=== PATIENT | male | born 1975 | race Caucasian/White ===

== ENCOUNTER 2022-06-17 19:13 | Inpatient (IN) ==
--- NOTE | 2022-06-17 19:25 | Emergency Department Note ---
ED Provider Note History of Present Illness Chief Complaint: Leg Injury/Pain Stated Complaint: R LEG PAIN Time Seen by Provider: 06/17/22 19:24 This is a 47-year-old male with a history of psoriasis, accompanied by his , who presents to the emergency department with ongoing right leg swelling over the past 2 months, calf pain, and now a red rash on the inside of his thigh that began over the weekend several days ago. He initially developed some calf pain and Swelling two months ago and states he was seen at a local urgent care and was diagnosed with a muscle spasm and prescribed with muscle relaxants. He states that the pain somewhat resolved after several weeks though has come and gone and the swelling in his calf has never really improved. 2 days ago after playing golf he developed a red burning rash on the inside of his thigh that has not improved. He thinks his leg is somewhat more swollen than it has been. He is able to walk on the leg though does cause some discomfort. He endorses some fatigue recently but denies denies any fevers or chills. Denies any inguinal discomfort, abdominal pain, chest pain, shortness of breath, pain with inspiration. Denies any cardiac history. Not immunocompromised. No history of DVT or PE. Denies any prolonged vehicle or plane trips before his initial discomfort began. Past Med/Surg History Medical History Psoriasis Surgical History No pertinent past surgical history Social History Smoking Status: Current every day smoker Tobacco Type: Cigarettes Preferred Language: [place] Feels Safe at Home: Yes Physical Exam Vital Signs Vital Signs - 24 hr 06/17/22 19:17 06/17/22 21:46 Temperature 97.9 F Temperature Source Temporal Artery Scan Pulse Rate 89 Pulse Rate [Finger] 67 Respiratory Rate 18 16 Respiratory Effort / Characteristics Non-Labored Spontaneous Respiratory Depth Normal Blood Pressure 115/82 Blood Pressure [Right Arm] 142/74 H Blood Pressure Mean 93 Blood Pressure Mean [Right Arm] 96 Blood Pressure Position Sitting Pulse Oximetry 99 96 Oxygen Delivery Method Room Air Room Air Sepsis Recent Fever Within 48 Hours No Sepsis New/Unexplained Change in Mental Status No Sepsis Action Taken by Nursing No Action Required CONSTITUTIONAL: Well developed, well nourished, in no acute distress. NECK: Full active range of motion. RESPIRATORY: Breathing unlabored and symmetric. Lungs clear to auscultation bilaterally. No wheeze, rales, or rhonchi. CARDIOVASCULAR: Regular rate and rhythm. No murmurs, rubs, or gallops. DP pulses 2+ bilaterally. ABDOMEN: Normal bowel sounds. Soft, nontender, no peritonitis. No masses. LYMPHATIC: No inguinal adenopathy MUSCULOSKELETAL: Right lower extremity: Swelling is appreciated compared to contralateral, especially within the calf. There is 1+ pitting edema in the lower leg. There is an area of warmth and erythema located along the majority of the medial thigh. This is tender to palpation medially. There is tenderness in the calf. No varicose veins. No evidence of cerulea dolens or alba dolens. SKIN: [place], warm, dry. Intact. NEUROLOGIC: Awake, alert, oriented. Gaze is conjugate. Face symmetric. Strength 5+ in bilateral lower extremities. No sensory deficits in bilateral lower extremities. PSYCHIATRIC: Appropriate. Normal affect. Course Administered Medications Discontinued Medications Apixaban (Apixaban 5 Mg Tablet) 10 mg PO NOW STA Stop: 06/17/22 21:19 Last Admin: 06/17/22 22:07 Dose: Not Given Documented By: JOHN Apixaban (Apixaban 5 Mg Tablet) 10 mg PO NOW STA Stop: 06/17/22 21:26 Last Admin: 06/17/22 22:07 Dose: Not Given Documented By: JOHN Medical Decision Making Differential Diagnosis Cellulitis, DVT, superficial thrombophlebitis, abscess, effusion, bursitis, lymphedema, tendinitis, muscle strain, Rae's cyst, venous insufficiency, among other pathology Medical Records Attestation: I reviewed the patient's medical records. Laboratory Data 06/17/22 19:50 06/17/22 19:50 Lab Results 06/17/22 06/17/22 06/17/22 Range/Units 19:50 19:50 19:50 WBC 9.22 (4.8-10.8) K/ul RBC 5.28 (4.70-6.10) M/uL Hgb 15.7 (14.0-18.0) g/dl Hct 45.0 (42.0-52.0) % MCV 85.2 (80.0-100.0) fL MCH 29.7 (25.0-34.0) pg MCHC 34.9 (32.0-36.0) g/dL RDW Std Deviation 37.7 (36.4-46.3) fL RDW Coeff of Wiliam 12.2 (11.5-14.5) % Plt Count 213 (130-400) K/uL MPV 10.2 (9.4-12.4) fL Immature Gran % (Auto) 1.0 % Neut % (Auto) 57.7 % Lymph % (Auto) 25.7 % [place] % (Auto) 11.4 % Eos % (Auto) 3.4 % Baso % (Auto) 0.8 % Neut # (Auto) 5.33 (1.40-6.50) K/uL Lymph # (Auto) 2.37 (1.2-3.4) K/uL [place] # (Auto) 1.05 H (0.11-0.59) K/uL Eos # (Auto) 0.31 (0-0.50) K/uL Baso # (Auto) 0.07 (0-0.2) K/uL Immature Gran # (Auto) 0.09 (0.01-0.20) K/uL PT 10.6 (9.0-12.0) Seconds INR 1.0 (0.9-1.1) APTT 27.1 (21.0-31.0) Seconds PTT Ratio 1.0 Sodium 139 (136-145) mmol/L Potassium 4.1 (3.5-5.1) mmol/L Chloride 105 (98-107) mmol/L Carbon Dioxide 29 (21-32) mmol/L Anion Gap 5 (3-11) BUN 15 (6-23) mg/dl Creatinine 1.10 (0.6-1.4) mg/dl Est Cr Clr Drug Dosing 104.4 ml/min Est GFR ( Amer) 93.5 ml/min Est GFR (Non-Af Amer) 80.6 ml/min BUN/Creatinine Ratio 13.6 (10-20) Glucose 95 (70-99(Fasting)) mg/dl Calcium 9.5 (8.6-10.3) mg/dl Total Bilirubin 0.5 (0.2-1.0) mg/dl AST 19 (13-39) U/L ALT 15 (7-52) U/L Alkaline Phosphatase 64 (34-104) U/L Total Protein 6.6 (6.0-8.3) gm/dl Albumin 4.2 (3.4-5.0) gm/dl Globulin 2.4 L (2.5-4.0) gm/dl Albumin/Globulin Ratio 1.8 (0.9-2) Imaging Data Radiologist's Impression: Venous Doppler Study 06/17/22 19:36 US venous doppler LE RT CLINICAL HISTORY: leg swelling, erythema medial thigh warm TECHNIQUE: Right lower extremity real-time compression venous ultrasound with Color Doppler imaging. Utilizing real-time ultrasonic imaging multiple real time high-resolution ultrasonic images with compression and noncompression maneuvers of the deep venous system in addition to color doppler imaging were performed fr om the common femoral vein through the proximal calf veins. COMPARISON: None available at the time of this dictation. FINDINGS/IMPRESSION: Deep venous thrombus is seen throughout the right lower extremity from the visualized right iliac vein to the calf veins. The peroneal veins are not well visualized. Superficial thrombus is seen in the greater saphenous vein from the proximal to distal thigh. ACT 112: Negative or not required by law. Electronically signed by: Vincent Pringle M.D. 06/17/2022 8:54 PM MDM Narrative This is a 47-year-old male who presents with 2 months of right lower leg swelling and calf pain. Pain has been intermittent, swelling has been more or less constant. Recently developed an erythematous burning rash located on his medial thigh. This was initially diagnosed as a calf strain 2 months ago at a local urgent care. On exam he is well-appearing in no acute distress with normal vital signs. He denies any chest pain or shortness of breath. His right leg is significantly swollen compared to the contralateral especially in the lower leg, he has 1+ pitting edema. He has calf tenderness, and erythematous rash located in the medial thigh that is tender to palpation. Neurovascularly intact. Labs were obtained demonstrating no leukocytosis or anemia. Coags are normal. Renal function is normal. Ultrasound of the leg shows an extensive DVT extending into what was visualized of the iliac vein down through the calf veins. 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 I did run this by Dr. Carpenter (hematology) who agreed admitting the patient would be the safest option. I then discussed the case with the hospitalist Dr. Disla who agreed to admit the patient. Hypercoagulable panel was obtained prior to admission. Patient comfortable with this plan Impression Acute deep vein thrombosis of leg Discharge Plan Visit Data Chief Complaint: Leg Injury/Pain Stated Complaint: R LEG PAIN ED Provider: Carrington Iraheta ED Midlevel Provider: Tra Real Discharge Problem: Acute deep vein thrombosis of leg Patient Disposition: Admitted As Inpatient Condition: Good Forms Stand Alone Forms: My [facility], [facility] Emergency Department, Important Visit Information Referrals Referrals: PCP,NO [Primary Care Provider] - Acute deep vein thrombosis of leg Qualifiers: Affected thrombotic vein of extremity: iliac Laterality: right Qualified Code(s): I82.421 - Acute embolism and thrombosis of right iliac vein
[2022-06-17 20:42] LABS: Albumin Globulin Ratio 1.8 (0.9-2); Albumin Level 4.2 gm/dl (3.4-5.0); BUN Creatinine Ratio 13.6 (10-20); Bilirubin,Total 0.5 mg/dl (0.2-1.0); Calcium 9.5 mg/dl (8.6-10.3); Creatinine Clr Calc Pharmacy 104.4 ml/min; Est GFR (African American) 93.5 ml/min; Est GFR (Non-African American) 80.6 ml/min; Globulin 2.4 gm/dl (2.5-4.0); Potassium 4.1 mmol/L (3.5-5.1); Total Protein 6.6 gm/dl (6.0-8.3)
[2022-06-17 20:52] LABS: Basophils # (auto) 0.07 K/uL (0-0.2); Basophils % (auto) 0.8 %; Eosinophils # (auto) 0.31 K/uL (0-0.50); Eosinophils % (auto) 3.4 %; Hemoglobin 15.7 g/dl (14.0-18.0); Immature Granulocytes # (auto) 0.09 K/uL (0.01-0.20); Lymphocytes # (auto) 2.37 K/uL (1.2-3.4); Lymphocytes % (auto) 25.7 %; Mean Corpuscular Hemoglobin 29.7 pg (25.0-34.0); Mean Corpuscular Hgb Conc 34.9 g/dL (32.0-36.0); Mean Corpuscular Volume 85.2 fL (80.0-100.0); Mean Platelet Volume 10.2 fL (9.4-12.4); Monocytes # (auto) 1.05 K/uL (0.11-0.59); Monocytes % (auto) 11.4 %; Neutrophils # (auto) 5.33 K/uL (1.40-6.50); Neutrophils % (auto) 57.7 %; Partial Thromboplastin Time 27.1 Seconds (21.0-31.0); Platelet Count 213 K/uL (130-400); Prothrombin Time 10.6 Seconds (9.0-12.0); RDW Coefficient of Variation 12.2 % (11.5-14.5); RDW Standard Deviation 37.7 fL (36.4-46.3); Red Blood Count 5.28 M/uL (4.70-6.10); White Blood Count 9.22 K/ul (4.8-10.8)
--- NOTE | 2022-06-17 20:55 | Ultrasound Report ---
US venous doppler LE RT CLINICAL HISTORY: leg swelling, erythema medial thigh warm TECHNIQUE: Right lower extremity real-time compression venous ultrasound with Color Doppler imaging. Utilizing real-time ultrasonic imaging multiple real time high-resolution ultrasonic images with comp ression and noncompression maneuvers of the deep venous system in addition to color doppler imaging w ere performed from the common femoral vein through the proximal calf veins. COMPARISON: None available at the time of this dictation. FINDINGS/IMPRESSION: Deep venous thrombus is seen throughout the right lower extremity from the visualized right iliac vei n to the calf veins. The peroneal veins are not well visualized. Superficial thrombus is seen in the greater saphenous vein from the proximal to distal thigh. ACT 112: Negative or not required by law. Electronically signed by: Vincent Pringle M.D. 06/17/2022 8:54 PM
[2022-06-17] MEDS ORDERED: APIXABAN 5 MG TABLET PO STA ×2 (21:18→21:25)
--- NOTE | 2022-06-17 22:43 | History & Physical Report ---
Date of Service June 17, 2022 Assessment & Plan (1) Acute deep vein thrombosis of leg: Plan: Extensive RLE DVT First occurrence No obvious provoking factor Psoriatic arthritis, stable off methotrexate GMF Weight-based Lovenox for now Patient expressed interest in Eliquis. Case management consult to check on insurance eligibility for medication. Outpatient hematology consult Re: Unprovoked extensive RLE DVT DVT prophylaxis. Lovenox Full code Text document was generated using [employer] voice recognition software. It may contain grammatical or spelling errors. Kindly contact undersigned for clarification of any documentation item in question. History of Present Illness Chief Complaint: RLE swelling/pain Primary Care Provider: Mike Toledo History obtained from patient, family, and records. Medical history significant for psoriatic arthritis. 2 months ago patient noted right calf tightness worse with motion no recollection of trauma. No recollection of trauma, immobility, prolonged travel. PCP attributed pain muscular etiology. Some improvement of symptoms with NSAIDs and muscle relaxant prescription but swelling did not fully subside. Few days ago, patient noted nonpruritic rash on the right thigh. Right leg more swollen and painful especially after golfing. No chest pain, no SOB. No abdominal pain, no unusual weight loss. No prior history of blood clots. No abdominal pain, no unusual weight loss. Family history of sudden among grandparents due to undetermined cause. Patient consulted ER for evaluation. Medical History as above Surgical History : Testicular torsion surgery, dental surgery Family History : Sudden from parents, mood disorder Personal/Social history : Non-smoker, no EtOH intake, administrative officer Allergies Allergy/AdvReac Type Severity Reaction Status Date / Time No Known Allergies Allergy Unverified 06/18/22 05:00 Past Med/Surg History Medical History Psoriasis Surgical History No pertinent past surgical history Social History Smoking Status: Current every day smoker Tobacco Type: Cigarettes Second Hand Exposure: No; Do You Dip or Chew Tobacco: No; Tobacco Cessation Education Requested by Patient: No Hx Alcohol Use: Yes Alcohol type: beer, wine and hard liquor Hx Substance Use: No Preferred Language: [place] Communication Ability: Effective Tool Checker Required: No Beliefs That Will Affect Care: None Current Living Situation: Family Other Information That Helps Us Care for You: No Feels Safe at Home: Yes Safety Concerns: Feels Safe At This Time Assistive Devices: None Review of Systems Review of Systems: As per HPI, all other systems reviewed and negative Physical Exam Physical Exam: GENERAL: Comfortable, pleasant, obese, no respiratory distress SKIN: Normal color, warm HEENT: [place]pect[place], [place] palpebral conjunctivae, no ptosis, moist buccal mucosa NECK : Supple, no tenderness CHEST : CTA, no tenderness HEART : RRR, no obvious murmurs ABDOMEN: Some distention, nontender EXTREMITIES : Tender RLE swelling, no other conspicuous deformities noted NEUROLOGIC : Coherent, no facial asymmetry, no other gross focality Results & Data Results & Data Vital Signs (Past 12 Hours) Vital Signs Temp Pulse Pulse Resp BP BP Pulse Ox 06/17/22 21:46 67 16 142/74 H 96 06/17/22 19:17 36.6 C 89 18 115/82 99 O2 Del Method 06/17/22 21:46 Room Air 06/17/22 19:17 Room Air Laboratory Results Laboratory Results WBC 9.22 K/ul (4.8-10.8) 06/17/22 19:50 RBC 5.28 M/uL (4.70-6.10) 06/17/22 19:50 Hgb 15.7 g/dl (14.0-18.0) 06/17/22 19:50 Hct 45.0 % (42.0-52.0) 06/17/22 19:50 MCV 85.2 fL (80.0-100.0) 06/17/22 19:50 MCH 29.7 pg (25.0-34.0) 06/17/22 19:50 MCHC 34.9 g/dL (32.0-36.0) 06/17/22 19:50 RDW Std Deviation 37.7 fL (36.4-46.3) 06/17/22 19:50 RDW Coeff of Wiliam 12.2 % (11.5-14.5) 06/17/22 19:50 Plt Count 213 K/uL (130-400) 06/17/22 19:50 MPV 10.2 fL (9.4-12.4) 06/17/22 19:50 Immature Gran % (Auto) 1.0 % 06/17/22 19:50 Neut % (Auto) 57.7 % 06/17/22 19:50 Lymph % (Auto) 25.7 % 06/17/22 19:50 [place] % (Auto) 11.4 % 06/17/22 19:50 Eos % (Auto) 3.4 % 06/17/22 19:50 Baso % (Auto) 0.8 % 06/17/22 19:50 Neut # (Auto) 5.33 K/uL (1.40-6.50) 06/17/22 19:50 Lymph # (Auto) 2.37 K/uL (1.2-3.4) 06/17/22 19:50 [place] # (Auto) 1.05 K/uL (0.11-0.59) H 06/17/22 19:50 Eos # (Auto) 0.31 K/uL (0-0.50) 06/17/22 19:50 Baso # (Auto) 0.07 K/uL (0-0.2) 06/17/22 19:50 Immature Gran # (Auto) 0.09 K/uL (0.01-0.20) 06/17/22 19:50 PT 10.6 Seconds (9.0-12.0) 06/17/22 19:50 INR 1.0 (0.9-1.1) 06/17/22 19:50 APTT 27.1 Seconds (21.0-31.0) 06/17/22 19:50 PTT Ratio 1.0 06/17/22 19:50 Sodium 139 mmol/L (136-145) 06/17/22 19:50 Potassium 4.1 mmol/L (3.5-5.1) 06/17/22 19:50 Chloride 105 mmol/L (98-107) 06/17/22 19:50 Carbon Dioxide 29 mmol/L (21-32) 06/17/22 19:50 Anion Gap 5 (3-11) 06/17/22 19:50 BUN 15 mg/dl (6-23) 06/17/22 19:50 Creatinine 1.10 mg/dl (0.6-1.4) 06/17/22 19:50 Est Cr Clr Drug Dosing 104.4 ml/min 06/17/22 19:50 Est GFR ( Amer) 93.5 ml/min 06/17/22 19:50 Est GFR (Non-Af Amer) 80.6 ml/min 06/17/22 19:50 BUN/Creatinine Ratio 13.6 (10-20) 06/17/22 19:50 Glucose 95 mg/dl (70-99(Fasting)) 06/17/22 19:50 Calcium 9.5 mg/dl (8.6-10.3) 06/17/22 19:50 Total Bilirubin 0.5 mg/dl (0.2-1.0) 06/17/22 19:50 AST 19 U/L (13-39) 06/17/22 19:50 ALT 15 U/L (7-52) 06/17/22 19:50 Alkaline Phosphatase 64 U/L (34-104) 06/17/22 19:50 Total Protein 6.6 gm/dl (6.0-8.3) 06/17/22 19:50 Albumin 4.2 gm/dl (3.4-5.0) 06/17/22 19:50 Globulin 2.4 gm/dl (2.5-4.0) L 06/17/22 19:50 Albumin/Globulin Ratio 1.8 (0.9-2) 06/17/22 19:50 SARS-CoV-2, RNA, NAAT NEGATIVE (NEGATIVE) 06/17/22 22:05 Impressions Venous Doppler Study 06/17/22 19:36 US venous doppler LE RT CLINICAL HISTORY: leg swelling, erythema medial thigh warm TECHNIQUE: Right lower extremity real-time compression venous ultrasound with Color Doppler imaging. Utilizing real-time ultrasonic imaging multiple real time high-resolution ultrasonic images with compression and noncompression maneuvers of the deep venous system in addition to color doppler imaging were performed from the common femoral vein through the proximal calf veins. COMPARISON: None available at the time of this dictation. FINDINGS/IMPRESSION: Deep venous thrombus is seen throughout the right lower extremity from the visualized right iliac vein to the calf veins. The peroneal veins are not well visualized. Superficial thrombus is seen in the greater saphenous vein from the proximal to distal thigh. ACT 112: Negative or not required by law. Electronically signed by: Vincent Pringle M.D. 06/17/2022 8:54 PM (1) Acute deep vein thrombosis of leg Affected thrombotic vein of extremity: iliac Laterality: right Qualified Code(s): I82.421 - Acute embolism and thrombosis of right iliac vein
[2022-06-17] MEDS ORDERED: PROMETHAZINE HCL 12.5 MG in SODIUM CHLORIDE 0.9% 50 ML IV PRN (23:36)
[2022-06-17] MEDS ORDERED: ACETAMINOPHEN 325 MG TAB PO PRN (23:36)
[2022-06-17] MEDS ORDERED: traMADol HCL 50 MG TABLET PO PRN (23:36)
[2022-06-17] MEDS ORDERED: Patient's ALLERGY Info needs ENTERED STA (23:41)
[2022-06-18] MEDS: ENOXAPARIN INJ 120 MG/0.8 ML SYR SC SCH ×2 (00:07→12:05)
[2022-06-18] MEDS ORDERED: Patient's ALLERGY Info needs ENTERED STA (03:46)
[2022-06-18 07:39] LABS: Basophils # (auto) 0.06 K/uL (0-0.2); Basophils % (auto) 0.9 %; Eosinophils # (auto) 0.25 K/uL (0-0.50); Eosinophils % (auto) 3.6 %; Hematocrit (blood only) 43.7 % (42.0-52.0); Hemoglobin 15.3 g/dl (14.0-18.0); Immature Granulocytes # (auto) 0.07 K/uL (0.01-0.20); Lymphocytes # (auto) 1.64 K/uL (1.2-3.4); Lymphocytes % (auto) 23.7 %; Mean Corpuscular Hemoglobin 29.7 pg (25.0-34.0); Mean Corpuscular Volume 84.9 fL (80.0-100.0); Monocytes # (auto) 0.89 K/uL (0.11-0.59); Monocytes % (auto) 12.9 %; Neutrophils % (auto) 57.9 %; Platelet Count 198 K/uL (130-400); RDW Coefficient of Variation 12.4 % (11.5-14.5); RDW Standard Deviation 38.3 fL (36.4-46.3); Red Blood Count 5.15 M/uL (4.70-6.10); White Blood Count 6.91 K/ul (4.8-10.8)
[2022-06-18 08:13] LABS: Lyme Ab IgG w/WB Rflx Negative (Negative); Lyme Ab IgM w/WB Rflx Negative (Negative)
--- NOTE | 2022-06-18 16:28 | Hospitalist Progress Note ---
Date of Service June 18, 2022 Assessment & Plan (1) Acute deep vein thrombosis of leg: Plan: Extensive RLE DVT First occurrence No obvious provoking factor --Venous Doppler:Deep venous thrombus is seen throughout the right lower extremity from the visualized right iliac vein to the calf veins. The peroneal veins are not well visualized. Superficial thrombus is seen in the greater saphenous vein from the proximal to distal thigh. Continue therapeutic Lovenox Plan to transition to [facility] as able Hypercoagulable work-up pending Needs follow-up with heme oncology as outpatient Psoriatic arthritis stable off methotrexate DVT Px Lovenox SQ Code Status Full code Admission and Anticipated Discharge Date Admission Date: June 17, 2022 Subjective Patient is seen and examined at bedside States having right lower extremity pain, swelling, erythema Reports leg pain with ambulation Denies any chest pain, shortness of breath, dizziness, nausea, vomiting, abdominal pain, bleeding issues Discussed with patient's family at bedside No other complaints Review of Systems Review of Systems: All systems reviewed & are unremarkable except as noted in Subjective Physical Exam Physical Exam: Physical Exam: Vitals signs as noted above General Appearance:Moderately built and nourished, no apparent distress Head: normocephalic, Atraumatic Eyes: normal inspection, EOMI Neck: supple, Trachea midline Respiratory/Chest: Normal breath sounds, CTA, No accessory muscle use Cardiovascular: S1, S2, No murmur Abdomen/GI:Soft, Non tender, Bowel sounds present Extremities/Musculoskeletal:normal inspection,RLE swelling, warmth, minimal erythema Neurologic/Psych:AAOX3, grossly no focal neurological deficits Skin: normal color, warm,+psoriasis Results & Data Results & Data Vital Signs (Past 12 Hours) Vital Signs Temp Pulse Resp BP Pulse Ox O2 Del Method 06/18/22 15:31 36.6 C 66 18 134/77 97 Room Air 06/18/22 07:34 36.7 C 60 16 122/79 95 Room Air Laboratory Results Short CBC 06/17/22 06/18/22 Range/Units 19:50 07:12 WBC 9.22 6.91 (4.8-10.8) K/ul Hgb 15.7 15.3 (14.0-18.0) g/dl Hct 45.0 43.7 (42.0-52.0) % Plt Count 213 198 (130-400) K/uL [facility] 06/17/22 19:50 Sodium 139 Potassium 4.1 Chloride 105 Carbon Dioxide 29 BUN 15 Creatinine 1.10 Glucose 95 Calcium 9.5 Liver Function 06/17/22 Range/Units 19:50 Total Bilirubin 0.5 (0.2-1.0) mg/dl AST 19 (13-39) U/L ALT 15 (7-52) U/L Alkaline Phosphatase 64 (34-104) U/L Albumin 4.2 (3.4-5.0) gm/dl (1) Acute deep vein thrombosis of leg Affected thrombotic vein of extremity: iliac Laterality: right Qualified Code(s): I82.421 - Acute embolism and thrombosis of right iliac vein
[2022-06-19] MEDS: ENOXAPARIN INJ 120 MG/0.8 ML SYR SC SCH (01:29)
[2022-06-19 08:15] LABS: Hematocrit (blood only) 48.4 % (42.0-52.0); Hemoglobin 16.5 g/dl (14.0-18.0); Mean Corpuscular Hemoglobin 29.5 pg (25.0-34.0); Mean Corpuscular Hgb Conc 34.1 g/dL (32.0-36.0); Mean Corpuscular Volume 86.4 fL (80.0-100.0); Platelet Count 223 K/uL (130-400); RDW Coefficient of Variation 12.1 % (11.5-14.5); RDW Standard Deviation 38.2 fL (36.4-46.3); White Blood Count 6.76 K/ul (4.8-10.8)
[2022-06-19 08:37] LABS: BUN Creatinine Ratio 13.2 (10-20); Calcium 9.4 mg/dl (8.6-10.3); Creatinine Clr Calc Pharmacy 125.6 ml/min; Est GFR (African American) 117.5 ml/min; Est GFR (Non-African American) 101.4 ml/min; Magnesium 1.9 mg/dl (1.7-2.4); Potassium 4.8 mmol/L (3.5-5.1)
[2022-06-19] MEDS ORDERED: APIXABAN 5 MG TABLET PO SCH (10:45)
--- NOTE | 2022-06-19 11:16 | Hospitalist Progress Note ---
Date of Service June 19, 2022 Assessment & Plan (1) Acute deep vein thrombosis of leg: Plan: Extensive RLE DVT First occurrence No obvious provoking factor --Venous Doppler:Deep venous thrombus is seen throughout the right lower extremity from the visualized right iliac vein to the calf veins. The peroneal veins are not well visualized. Superficial thrombus is seen in the greater saphenous vein from the proximal to distal thigh. On therapeutic Lovenox Hypercoagulable work-up pending Needs follow-up with heme oncology as outpatient Plan to transition Lovenox to apixaban today Psoriatic arthritis stable off methotrexate DVT Px Lovenox SQ Code Status Full code Disposition Home Admission and Anticipated Discharge Date Admission Date: June 17, 2022 Subjective Patient is seen and examined at bedside Right lower extremity erythema, swelling continues to improve Still has right lower extremity pain with ambulation Denies any bleeding issues Also denies any chest pain, shortness of breath, dizziness, nausea, vomiting, abdominal pain Plan to discharge home today Review of Systems Review of Systems: All systems reviewed & are unremarkable except as noted in Subjective Physical Exam Physical Exam: Physical Exam: Vitals signs as noted above General Appearance:Moderately built and nourished, no apparent distress Head: normocephalic, Atraumatic Eyes: normal inspection, EOMI Neck: supple, Trachea midline Respiratory/Chest: Normal breath sounds, CTA, No accessory muscle use Cardiovascular: S1, S2, No murmur Abdomen/GI:Soft, Non tender, Bowel sounds present Extremities/Musculoskeletal:normal inspection,RLE swelling, warmth, minimal erythema improving Neurologic/Psych:AAOX3, grossly no focal neurological deficits Skin: normal color, warm,+psoriasis Results & Data Results & Data Vital Signs (Past 12 Hours) Vital Signs Temp Pulse Resp BP Pulse Ox O2 Del Method 06/19/22 07:40 36.9 C 60 16 131/82 95 Room Air Laboratory Results Short CBC 06/19/22 Range/Units 07:46 WBC 6.76 (4.8-10.8) K/ul Hgb 16.5 (14.0-18.0) g/dl Hct 48.4 (42.0-52.0) % Plt Count 223 (130-400) K/uL BMP 06/19/22 07:46 Sodium 140 Potassium 4.8 Chloride 105 Carbon Dioxide 32 BUN 12 Creatinine 0.91 Glucose 95 Calcium 9.4 (1) Acute deep vein thrombosis of leg Affected thrombotic vein of extremity: iliac Laterality: right Qualified Code(s): I82.421 - Acute embolism and thrombosis of right iliac vein
--- NOTE | 2022-06-19 11:28 | Discharge Summary ---
Date of Service June 19, 2022 Admission HPI Per Admitting Provider History obtained from patient, family, and records. Medical history significant for psoriatic arthritis. 2 months ago patient noted right calf tightness worse with motion no recollection of trauma. No recollection of trauma, immobility, prolonged travel. PCP attributed pain muscular etiology. Some improvement of symptoms with NSAIDs and muscle relaxant prescription but swelling did not fully subside. Few days ago, patient noted nonpruritic rash on the right thigh. Right leg more swollen and painful especially after golfing. No chest pain, no SOB. No abdominal pain, no unusual weight loss. No prior history of blood clots. No abdominal pain, no unusual weight loss. Family history of sudden among grandparents due to undetermined cause. Patient consulted ER for evaluation. Medical History as above Surgical History : Testicular torsion surgery, dental surgery Family History : Sudden from parents, mood disorder Personal/Social history : Non-smoker, no EtOH intake, data officer Admission Exam Per Admitting Provider GENERAL: Comfortable, pleasant, obese, no respiratory distress SKIN: Normal color, warm HEENT: [place]pect[place]led, [place] palpebral conjunctivae, no ptosis, moist buccal mucosa NECK : Supple, no tenderness CHEST : CTA, no tenderness HEART : RRR, no obvious murmurs ABDOMEN: Some distention, nontender EXTREMITIES : Tender RLE swelling, no other conspicuous deformities noted NEUROLOGIC : Coherent, no facial asymmetry, no other gross focality Principal Diagnosis Right lower extremity deep vein thrombosis Discharge Data Allergies Allergy/AdvReac Type Severity Reaction Status Date / Time No Known Allergies Allergy Unverified 06/18/22 05:00 Consultations 06/17/22 22:05 ED Decision to Admit Stat Procedures Performed Laboratory Results WBC 6.76 K/ul (4.8-10.8) 06/19/22 07:46 RBC 5.60 M/uL (4.70-6.10) 06/19/22 07:46 Hgb 16.5 g/dl (14.0-18.0) 06/19/22 07:46 Hct 48.4 % (42.0-52.0) 06/19/22 07:46 MCV 86.4 fL (80.0-100.0) 06/19/22 07:46 MCH 29.5 pg (25.0-34.0) 06/19/22 07:46 MCHC 34.1 g/dL (32.0-36.0) 06/19/22 07:46 RDW Std Deviation 38.2 fL (36.4-46.3) 06/19/22 07:46 RDW Coeff of Wiliam 12.1 % (11.5-14.5) 06/19/22 07:46 Plt Count 223 K/uL (130-400) 06/19/22 07:46 MPV 10.0 fL (9.4-12.4) 06/19/22 07:46 Immature Gran % (Auto) 1.0 % 06/18/22 07:12 Neut % (Auto) 57.9 % 06/18/22 07:12 Lymph % (Auto) 23.7 % 06/18/22 07:12 [place] % (Auto) 12.9 % 06/18/22 07:12 Eos % (Auto) 3.6 % 06/18/22 07:12 Baso % (Auto) 0.9 % 06/18/22 07:12 Neut # (Auto) 4.00 K/uL (1.40-6.50) 06/18/22 07:12 Lymph # (Auto) 1.64 K/uL (1.2-3.4) 06/18/22 07:12 [place] # (Auto) 0.89 K/uL (0.11-0.59) H 06/18/22 07:12 Eos # (Auto) 0.25 K/uL (0-0.50) 06/18/22 07:12 Baso # (Auto) 0.06 K/uL (0-0.2) 06/18/22 07:12 Immature Gran # (Auto) 0.07 K/uL (0.01-0.20) 06/18/22 07:12 PT 10.6 Seconds (9.0-12.0) 06/17/22 19:50 INR 1.0 (0.9-1.1) 06/17/22 19:50 APTT 27.1 Seconds (21.0-31.0) 06/17/22 19:50 PTT Ratio 1.0 06/17/22 19:50 Sodium 140 mmol/L (136-145) 06/19/22 07:46 Potassium 4.8 mmol/L (3.5-5.1) 06/19/22 07:46 Chloride 105 mmol/L (98-107) 06/19/22 07:46 Carbon Dioxide 32 mmol/L (21-32) 06/19/22 07:46 Anion Gap 3 (3-11) 06/19/22 07:46 BUN 12 mg/dl (6-23) 06/19/22 07:46 Creatinine 0.91 mg/dl (0.6-1.4) 06/19/22 07:46 Est Cr Clr Drug Dosing 125.6 ml/min 06/19/22 07:46 Est GFR ( Amer) 117.5 ml/min 06/19/22 07:46 Est GFR (Non-Af Amer) 101.4 ml/min 06/19/22 07:46 BUN/Creatinine Ratio 13.2 (10-20) 06/19/22 07:46 Glucose 95 mg/dl (70-99(Fasting)) 06/19/22 07:46 Calcium 9.4 mg/dl (8.6-10.3) 06/19/22 07:46 Magnesium 1.9 mg/dl (1.7-2.4) 06/19/22 07:46 Total Bilirubin 0.5 mg/dl (0.2-1.0) 06/17/22 19:50 AST 19 U/L (13-39) 06/17/22 19:50 ALT 15 U/L (7-52) 06/17/22 19:50 Alkaline Phosphatase 64 U/L (34-104) 06/17/22 19:50 Total Protein 6.6 gm/dl (6.0-8.3) 06/17/22 19:50 Albumin 4.2 gm/dl (3.4-5.0) 06/17/22 19:50 Globulin 2.4 gm/dl (2.5-4.0) L 06/17/22 19:50 Albumin/Globulin Ratio 1.8 (0.9-2) 06/17/22 19:50 Lyme Disease IgG Ab Negative (Negative) 06/18/22 07:12 Lyme Disease IgM Ab Negative (Negative) 06/18/22 07:12 SARS-CoV-2, RNA, NAAT NEGATIVE (NEGATIVE) 06/17/22 22:05 Impressions Venous Doppler Study 06/17/22 19:36 US venous doppler LE RT CLINICAL HISTORY: leg swelling, erythema medial thigh warm TECHNIQUE: Right lower extremity real-time compression venous ultrasound with Color Doppler imaging. Utilizing real-time ultrasonic imaging multiple real time high-resolution ultrasonic images with compression and noncompression maneuvers of the deep venous system in addition to color doppler imaging were performed from the common femoral vein through the proximal calf veins. COMPARISON: None available at the time of this dictation. FINDINGS/IMPRESSION: Deep venous thrombus is seen throughout the right lower extremity from the visualized right iliac vein to the calf veins. The peroneal veins are not well visualized. Superficial thrombus is seen in the greater saphenous vein from the proximal to distal thigh. ACT 112: Negative or not required by law. Electronically signed by: Vincent Pringle M.D. 06/17/2022 8:54 PM Ordered Studies 06/17/22 19:36 US leg [US venous doppler LE RT] Stat Hospital Course (1) Acute deep vein thrombosis of leg: Extensive RLE DVT First occurrence No obvious provoking factor --Venous Doppler:Deep venous thrombus is seen throughout the right lower extremity from the visualized right iliac vein to the calf veins. The peroneal veins are not well visualized. Superficial thrombus is seen in the greater saphenous vein from the proximal to distal thigh. On therapeutic Lovenox Hypercoagulable work-up pending Needs follow-up with heme oncology as outpatient Plan to transition Lovenox to apixaban today Psoriatic arthritis stable off methotrexate DVT Px Lovenox SQ Code Status Full code Disposition Home Total Time Total Time Spent Total Time Spent (In Minutes): 56 minutes Discharge Plan Discharge Items Patient Disposition: Home - Self-Care Reason For Visit: EXTENSIVE RLE DVT Discharge Diagnosis: Right lower extremity deep vein thrombosis Condition on Discharge: Good Activity: Per Instructions section Exercise/Sports: Wait until after follow-up appointment Non-emergency contact: Primary Care Provider Call non-emergency contact if: you have any medication questions, your symptoms worsen, your pain is concerning for you and you have a fever Follow-up/Referrals: Solomon Lopez MD [Outside Practitioners] - (Date & Time 06/21/2022 9:20 AM Provider Solomon Lopez MD [facility] ) Diet: Heart Healthy Addtl Attending Provider Instructions: Follow-up with your primary care physician in 1 week as advised --Consider following with your hematology oncologist in 3 to 4 weeks for further evaluation of your risk factors for clotting. --Start taking apixaban (Eliquis) 10 mg twice a day for 7 days and then take 5 mg twice a day. 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 Your blood work--hypercoagulable blood test is pending at the time of discharge. Follow-up with your physician for results. Do not take group of medications belonging to NSAIDs group -can increase your risk for bleeding while on apixaban. List Of these medications includes but not limited to: Aspirin Diclofenac Ibuprofen, Motrin, Advil Toradol,ketorolac Naproxen, Aleve, Naprosyn You can take Tylenol as needed for pain or fever When buying [id number] pain medications please consult with pharmacy if you are not sure regarding ingredients, as a lot of the pain medications have combination of NSAIDs and Tylenol. Seek immediate medical attention if your symptoms reoccur or worsen Please take all medications as instructed on discharge list below. Please call if you have any questions or problems. You can reach a [facility] hospitalist on duty at [facility] 24 hours a day by calling [phone] Pending Studies at Discharge: Yes Studies:: Hypercoagulable work up Stand-Alone Forms: My [facility], Work/School Release, Smoking Cessation Medications and DC Order Prescriptions: New apixaban 5 mg (74 tabs) tablets,dose pack 5 mg PO UD Qty: 74 1RF Rx Instructions: Start taking apixaban 10 mg twice a day for 1 week and then take 5 mg twice a day Discharge Orders: Discharge Order (Routine); Ordered 06/19/22 Ordered By: Dallas Preston Admission Data Admit Date/Time: 06/17/22 22:44 Attending Provider: Sarita Montez I. Admit Provider: Jase Disla Primary Care Provider: PCP,NO Other Providers: Jase Disla ; Dallas Preston
[2022-06-24 23:07] LABS: Anti Cardiolipin Ab IgG <2.0 GPL-U/mL; Anti Cardiolipin Ab IgM <2.0 MPL-U/mL; Anti-Thrombin III Activity 128 % normal (80-135); B2 Glycoprotein IgG <2.0 U/mL (<20.0); B2 Glycoprotein IgM <2.0 U/mL (<20.0); PTT LA Screen 33 sec (<=40); Protein S Functional(Activity) 106 % normal (70-150)
== END 2022-06-19 12:41 | disposition home or self-care (01) | DRG 301 ==
LOC: ED 19:13 → 3N 22:44 → SUATTDRO 22:44 → 3N 23:16